=== PATIENT | female | born 1970 | race Caucasian/White ===

== ENCOUNTER 2022-06-07 09:46 | Outpatient (REF) | payer MEDICARE, MEDICAID, SELFPAY ==
[2022-06-08 14:56] LABS: H Pylori Breath Test Negative (Negative)
== END 2022-06-07 09:47 | disposition home or self-care (01) ==
LOC: HO.LNP 09:46
PROVIDERS: Physician Assistant; PCP Internal Medicine; Visit Provider Physician Assistant Surgical
DX: Z01.818 Encounter for other preprocedural examination (principal); E66.01 Morbid (severe) obesity due to excess calories; E03.9 Hypothyroidism, unspecified; F31.9 Bipolar disorder, unspecified; I10 Essential (primary) hypertension; Z90.3 Acquired absence of stomach [part of]
CPT/HCPCS: 83013; 99202; 99211

== ENCOUNTER → 2022-06-28 09:41 | Outpatient (BNVA) | payer MEDICARE, MEDICAID, SELFPAY | PROVIDERS: PCP Internal Medicine; Visit Provider Physician Assistant | DX: E66.01 Morbid (severe) obesity due to excess calories (principal); I10 Essential (primary) hypertension; E03.9 Hypothyroidism, unspecified; Z90.3 Acquired absence of stomach [part of]; Z68.43 Body mass index [BMI] 50.0-59.9, adult | CPT/HCPCS: 99212 ==

== ENCOUNTER 2022-07-03 08:37 | Outpatient (REF) | payer MEDICARE, MEDICAID, SELFPAY ==
--- NOTE | ~2022-07-03 | XR_ITS ---
EXAMINATION: XR CHEST CLINICAL INFORMATION: Obesity COMPARISON: None TECHNIQUE: 2 views of the chest were obtained. FINDINGS: No significant abnormality is noted involving the heart, lungs, mediastinum, bony thorax or soft tissues. XR/XR chest 2V IMPRESSION: Unremarkable examination.
--- NOTE | 2022-07-03 08:48 | ECG_ITS ---
Test Reason : e66.01 Blood Pressure : / mmHG Vent. Rate : 054 BPM Atrial Rate : 054 BPM P-R Int : 126 ms QRS Dur : 098 ms QT Int : 424 ms P-R-T Axes : 022 073 041 degrees QTc Int : 402 ms Sinus bradycardia Otherwise normal ECG No previous ECGs available Referred By: Prachi Brooks Electronically Signed By:AUSTIN BEGUM
[2022-07-03 08:53] LABS: MANUAL DIFF FLAG NO
[2022-07-03 09:26] LABS: Basophils Percent Auto 0.4 % (0-2); Eosinophils Absolute Auto 0.2 X10*3/uL (0.0-0.4); Eosinophils Percent Auto 2.9 % (0-4); Hematocrit 43.8 % (37.0-47.0); Hemoglobin 14.3 g/dl (12.0-16.0); Imm Gran Abs Auto 0.03 X10*3/uL (0.00-0.03); Imm Gran Pct Auto 0.4 % (0.0-0.4); Lymphocytes Absolute Auto 1.6 X10*3/uL (1.2-4.9); Lymphocytes Percent Auto 20.7 % (20-40); Mean Corpuscular HGB Conc 32.6 g/dl (31.0-35.0); Mean Corpuscular Hemoglobin 28.7 pg (27.0-33.0); Mean Platelet Volume 9.5 fL (9.4-12.3); Monocytes Absolute Auto 0.5 X10*3/uL (0.1-1.2); Monocytes Percent Auto 6.3 % (2-11); Neutrophils Absolute Auto 5.5 x10*3/uL (2.0-8.3); Neutrophils Percent Auto 69.3 % (45-73); Platelet Count 345 X10*3/uL (160-400); Red Blood Count 4.98 X10*6/uL (4.20-5.50); White Blood Count 7.9 X10*3/uL (4.8-10.8)
[2022-07-03 10:04] LABS: Estimated Average Glucose 111 mg/dL; Hemoglobin A1c % 5.5 %
[2022-07-03 10:31] LABS: Folate 9.5 ng/mL (> or = 4.0); Vitamin B12 404 pg/mL (200-900)
[2022-07-03 10:32] LABS: Alanine Aminotransferase 19 U/L (0-31); Albumin Level 4.2 g/dL (3.5-5.0); Alkaline Phosphatase 82 U/L (39-117); Anion Gap 14 (12-20); Aspartate Amino Transferase 18 U/L (5-31); Bilirubin Total 0.4 mg/dL (0.0-1.0); Blood Urea Nitrogen 14 mg/dL (9-16); C Reactive Protein 1.45 mg/dL (< or = 0.50); Calcium 9.6 mg/dL (8.4-10.2); Carbon Dioxide 25 mmol/L (22-29); Chloride 103 mmol/L (96-108); Cholesterol 156 mg/dL; Estimated Glomerular Filt Rate > 60; Ferritin 45 ng/mL (10-250); Glucose Random 103 mg/dL (60-115); HDL Cholesterol 47 mg/dL; Insulin 8 uU/mL (2-29); Iron 51 mcg/dL (30-160); LDL Cholesterol Calculated 95 mg/dl; Percent Iron Saturation 15 % (15-50); Potassium 4.7 mmol/L (3.3-5.1); Sodium 137 mmol/L (135-145); TSH reflex Free T4 2.61 uIU/mL (0.32-4.0); Total Iron Binding Capacity 331 mcg/dL (228-428); Total Protein 6.9 g/dL (6.5-8.0); Triglycerides 71 mg/dL; Unsaturated Iron Binding 280 ug/dL; Vitamin D 25-OH Total 21.7 ng/mL (>30)
[2022-07-04 15:24] LABS: Calcium (PTHI) 9.4 mg/dL (8.6-10.4); PTHI 38 pg/mL (16-77)
[2022-07-09 00:08] LABS: Zinc 79 mcg/dL (60-130)
[2022-07-09 09:52] LABS: Vitamin A 33 mcg/dL (38-98)
[2022-07-10 06:22] LABS: Vitamin B1 9 nmol/L (8-30)
== END 2022-07-03 08:38 | disposition home or self-care (01) ==
LOC: HO.LAB 08:37
PROVIDERS: PCP Internal Medicine; Visit Provider Physician Assistant
DX: Z01.818 Encounter for other preprocedural examination (principal); E66.01 Morbid (severe) obesity due to excess calories; Z90.3 Acquired absence of stomach [part of]
CPT/HCPCS: 36415; 71046; 80053; 80061; 82306; 82607; 82728; 82746; 83036; 83525; 83540; 83970; 84425; 84443; 84590; 84630; 85025; 86140; 93005

== ENCOUNTER → 2022-07-19 09:30 | Outpatient (BNVA) | payer MEDICARE, MEDICAID, SELFPAY | PROVIDERS: PCP Internal Medicine; Visit Provider Physician Assistant | DX: E66.01 Morbid (severe) obesity due to excess calories (principal); Z90.3 Acquired absence of stomach [part of] | CPT/HCPCS: Q3014 ==

== ENCOUNTER → 2022-07-24 16:02 | Outpatient (BNVA) | payer MEDICARE, MEDICAID, SELFPAY | PROVIDERS: PCP Internal Medicine; Referring Provider Physician Assistant; Visit Provider Dietitian, Registered | DX: E66.01 Morbid (severe) obesity due to excess calories (principal); Z68.43 Body mass index [BMI] 50.0-59.9, adult; Z98.84 Bariatric surgery status | CPT/HCPCS: 97802 ==

== ENCOUNTER 2022-07-30 09:21 | Outpatient (REF) | payer MEDICARE, MEDICAID, SELFPAY ==
--- NOTE | ~2022-07-30 | FL_ITS ---
EXAMINATION: XR FLUOROSCOPY UPPER GI WITH AIR CLINICAL INFORMATION: Morbid/severe obesity due to excess calories. COMPARISON: None TECHNIQUE: Routine upper GI air-contrast study was performed in upright and lying position. FINDINGS: Following oral administration of thick barium and effervescent granules, there is normal propagation of bolus from the oral cavity through the pharynx, esophagus into stomach without any evidence of obstruction, narrowing or stricture. A prominent cricoesophageal sphincter is noted. On placing patient supine and prone lying, there is previous gastric sleeve surgery. The remaining stomach is distended. There is fast gastric emptying of oral contrast and gas into the duodenum. Mucosal pattern of the stomach, duodenal bulb and sweep is normal. Mild gastroesophageal reflux is noted without hiatal hernia. FLUOROSCOPY TIME: 1.2 minutes DOSE AREA PRODUCT: 36.502 uGy-m2 (microgray-meter squared) FL/FL upper GI w air IMPRESSION: Evidence of previous gastric sleeve surgery with unremarkable-appearing remaining stomach. There is fast gastric emptying of barium. Mild gastroesophageal reflux without hiatal hernia.
--- NOTE | ~2022-07-30 | US_ITS ---
EXAMINATION: US COMPLETE ABDOMEN WITH LIVER ELASTOGRAPHY CLINICAL INFORMATION: Morbid/severe obesity. COMPARISON: None. TECHNIQUE: Real-time imaging of the abdominal viscera. Noninvasive ultrasound liver fibrosis assessment is performed using Morales ElastPQ point quantification shear wave elastography (2D-SWE) with a C5-2 MHz transducer. Multiple elastography samples are obtained. FINDINGS: PANCREAS: The visualized pancreatic head and body are normal in appearance. The remainder of the pancreas is obscured from visualization by the overlying bowel gas. ABDOMINAL AORTA: The proximal, middle, and distal aortic segments are normal in caliber. INFERIOR VENA CAVA: Visualized portions are normal. LIVER: Normal. The liver demonstrates normal size, contour and slight increased echogenicity. No focal lesion or intrahepatic biliary duct dilatation. The right lobe measures 14.6 cm in length. The left lobe measures 10.7 cm in length. Portal flow is hepatopedal. Shear wave liver elastography median stiffness is 1.48 m/s (reference: normal median stiffness is 1.3 m/s or less). IQR/median stiffness to assess sampling precision is 0.08 (reference: good quality data set is IQR/median stiffness of 0.15 or less). GALLBLADDER: There are multiple echogenic impacted stones with a positive (SHLOMO sign). The gallbladder wall measures 0.4 cm. COMMON BILE DUCT: Normal in caliber measuring 0.6 cm in diameter. RIGHT KIDNEY: There is a large junctional parenchymal defect. No hydronephrosis. No renal calculi or focal parenchymal lesions. The kidney measures 12.2 cm in maximum dimension. LEFT KIDNEY: There is a trace amount of free fluid near the upper pole. No hydronephrosis. No renal calculi or focal parenchymal lesions. The kidney measures 11.8 cm in maximum dimension. SPLEEN: Normal. The spleen measures 9.5 cm in maximum dimension. FREE FLUID: None. US/US abdomen comp w elastography IMPRESSION: 1. Mild hepatic steatosis with no focal lesion seen. 2. Cholelithiasis. 3. Trace free fluid adjacent to the upper pole of the left kidney. 4. Liver elastography: Median liver stiffness measures 1.48 m/s corresponding to cACLD (ruled out). REFERENCE: Society of Radiologists in Ultrasound Liver Stiffness Thresholds (2020): LIVER STIFFNESS THRESHOLDS: *Liver Stiffness equal or less than 1.3 m/s: High probability of being normal. *Liver Stiffness less than 1.7 m/s: In the absence of other known clinical signs, rules out compensated advanced chronic liver disease. *Liver Stiffness 1.7-2.1 m/s: Suggestive of compensated advanced chronic liver disease but need further test for confirmation. *Liver Stiffness over 2.1 m/s: Rules in compensated advanced chronic liver disease. *Liver Stiffness over 2.4 m/s: Suggestive of clinically significant portal hypertension. QUALITY OF DATA SET: *IQR/Median value equal or less than 0.15 implies a quality data set. *IQR/Median value over 0.15 implies a poor quality data set. SIGNIFICANT CHANGE FROM PRIOR EXAM: Significant change if liver stiffness measurement is 10% or greater from prior exam. OTHER CONSIDERATIONS: The stage of liver fibrosis may be overestimated in the setting of acute hepatitis, liver inflammation, elevated liver function tests, hepatic vascular congestion, obstructive cholestasis, non-fasting state, and infiltrative diseases such as amyloidosis and lymphoma. In some patients with NAFLD, the liver stiffness thresholds for compensated advanced chronic liver disease may be lower. In causes other than viral hepatitis and NAFLD, liver stiffness thresholds are not well established.
== END 2022-07-30 09:22 | disposition home or self-care (01) ==
LOC: HO.US 09:21
PROVIDERS: Visit Provider Physician Assistant
DX: Z01.818 Encounter for other preprocedural examination (principal); E66.01 Morbid (severe) obesity due to excess calories; K21.9 Gastro-esophageal reflux disease without esophagitis; Z90.3 Acquired absence of stomach [part of]
CPT/HCPCS: 74246; 76705; 76981

== ENCOUNTER → 2022-08-05 10:00 | Outpatient (BNVA) | payer MEDICARE, MEDICAID, SELFPAY | PROVIDERS: PCP Internal Medicine; Visit Provider Physician Assistant | DX: E66.01 Morbid (severe) obesity due to excess calories (principal); Z68.42 Body mass index [BMI] 45.0-49.9, adult; Z90.3 Acquired absence of stomach [part of] | CPT/HCPCS: Q3014 ==

== ENCOUNTER 2022-08-15 06:13 | Day surgery (SDC) | payer MEDICARE, MEDICAID, SELFPAY ==
--- NOTE | 2022-08-09 18:50 | MHC.SHP ---
Pre-Procedural Eval Section A Date of Service: 08/09/22 The patient is an INPATIENT: No The History & Physical has been completed within 30 days and I have reviewed it.: Yes Section B Chief Complaint: Bariatric surgery status Relevant Family History (Specify if Yes): No Relevant Social History: None Present Medications: None Medical History: No relevant PMH History of Previous Operations: Relevant previous surgery/procedure and date(s) (lap sleeve gastrectomy) Allergies: Allergies Allergy/AdvReac Type Severity Reaction Status Date / Time No Known Allergies Allergy Verified 06/28/22 09:49 Review of Systems Sugical H&P ROS: Negative: Constitution, Cardiovascular, Respiratory, Neurological, Psychiatric, Hem-Onc, Allergic/Immunologic, Gastrointestinal, Genitourinary, Musculoskeletal, Integumentary, Endocrine and Eyes/Ears/Nose/Throat Exam Surgical H&P Exam: Normal: HEENT, Normal: Heart, Normal: Lungs, Normal: Extremities, Normal: Abdomen, Normal: Skin and Normal: Neurological Plan Diagnosis/Plan: Unchanged (EGD to assess for esophagitis and assess sleeve's anatomy. Risks for perforation and bleeding were discussed with patient. She is in agreement with the plan) I have reviewed the history and physical and performed a pertinent physical examination on my patient. No changes have occurred unless specified. Time Spent With Patient Time: Total time managing care of this patient today ____ minutes.
--- NOTE | 2022-08-14 09:13 | HO.ANESPROP2 ---
Documented by User: Norma Smith NP 08/14/22 09:15 HPI - Anesthesia Eval Consult details Narrative: 52yo F for Upper Endoscopy PMFSH Active Problems Active Problems: All Active Problems (Updated 06/07/22 @ 09:38 by Prachi Brooks PA-C) Pre-op evaluation (Acute) HTN (hypertension) with goal to be determined (Acute) Hypothyroid (Acute) Bipolar 1 disorder (Acute) History of sleeve gastrectomy (Acute) Morbid obesity (Acute) Past Medical History Medical History (Updated 08/14/22 @ 09:14 by Norma Smith NP) Bipolar 1 disorder HTN (hypertension) with goal to be determined Hypothyroid Family History Family History Mother Heart attack Father Heart attack Brother Heart attack Diabetes Brother Hypertension Brother Hypertension Sister Hypertension Sister No problems noted. Daughter No problems noted. Daughter No problems noted. Son No problems noted. Surgical History Surgical History History of sleeve gastrectomy Hx of colonoscopy Social History Social History Alcohol intake: former Year quit: 2019 Patient Tobacco Use Status: Current everyday Tobacco user Tobacco use type: Cigarette Cigarette Packs Per Day: 1 Cigarettes Per Day: 20.0 Second Hand Smoke Exposure: No Meds Allergies Allergy/AdvReac Type Severity Reaction Status Date / Time No Known Allergies Allergy Verified 06/28/22 09:49 Home Medications Medication Instructions Recorded Confirmed Last Taken Type escitalopram oxalate 10 mg tablet 10 mg PO QAM 05/20/22 08/15/22 Unknown History lamotrigine 25 mg tablet 25 mg PO BEDTIME 05/20/22 08/15/22 Unknown History quetiapine 50 mg tablet 50 mg PO BEDTIME 05/20/22 08/15/22 Unknown History levothyroxine 25 mcg capsule 25 mcg PO DAILY 06/28/22 08/15/22 Unknown History lisinopril 20 mg tablet 20 mg PO DAILY 06/28/22 08/15/22 Unknown History Exam Exam Date and Time: August 14, 202213 Pertinent Lab Results Pertinent Lab Results: Laboratory Tests 07/03/22 07/03/22 08:52 08:52 WBC 7.9 Hgb 14.3 Hct 43.8 Plt Count 345 Sodium 137 Potassium 4.7 Chloride 103 Carbon Dioxide 25 BUN 14 Creatinine 0.81 Narrative Narrative: EKG 06/2022 Vent. Rate : 054 BPM ? ? Atrial Rate : 054 BPM ?? P-R Int : 126 ms? QRS Dur : 098 ms ? ? QT Int : 424 ms ? ? ? P-R-T Axes : 022 073 041 degrees ?? QTc Int : 402 ms ? Sinus bradycardia Otherwise normal ECG No previous ECGs available Assessment and Plan Assessment Anesthesia Assessment: Chart Reviewed Documented by User: Diogo Leiva MD 08/15/22 09:56 [facility] Past Medical History Medical History (Updated 08/14/22 @ 09:14 by Norma Smith NP) Bipolar 1 disorder HTN (hypertension) with goal to be determined Hypothyroid Functional capacity: independent ambulation Family History Family History Mother Heart attack Father Heart attack Brother Heart attack Diabetes Brother Hypertension Brother Hypertension Sister Hypertension Sister No problems noted. Daughter No problems noted. Daughter No problems noted. Son No problems noted. Family history of problems with anesthesia: No Surgical History Surgical History History of sleeve gastrectomy Hx of colonoscopy History of Problems with Anesthesia: No Social History Social History Alcohol intake: former Year quit: 2019 Patient Tobacco Use Status: Current everyday Tobacco user Tobacco use type: Cigarette Cigarette Packs Per Day: 1 Cigarettes Per Day: 20.0 Second Hand Smoke Exposure: No Meds Allergies Allergy/AdvReac Type Severity Reaction Status Date / Time No Known Allergies Allergy Verified 06/28/22 09:49 Home Medications Medication Instructions Recorded Confirmed Last Taken Type escitalopram oxalate 10 mg tablet 10 mg PO QAM 05/20/22 08/15/22 Unknown History lamotrigine 25 mg tablet 25 mg PO BEDTIME 05/20/22 08/15/22 Unknown History quetiapine 50 mg tablet 50 mg PO BEDTIME 05/20/22 08/15/22 Unknown History levothyroxine 25 mcg capsule 25 mcg PO DAILY 06/28/22 08/15/22 Unknown History lisinopril 20 mg tablet 20 mg PO DAILY 06/28/22 08/15/22 Unknown History Exam Airway Mallampati Class: III TM Dist: >3cm Neck ROM: Full Loose/Missing/Broken Teeth: Yes Heart: S1,S2 Lungs: distant breath sounds Assessment and Plan Assessment Anesthesia Assessment: Anesthesia Plan Discussed Final Anesthetic Review Family History of Problems with Anesthesia: No History of Problems with Anesthesia: No NPO: Yes ASA Class: III Final Preanesthetic Review: Meds/Allgs Chart Reviewed, Consent Obtained/Reviewed and Anes Risks/Benef Reviewed Patient Risk: High Procedure Risk: Intermediate Anesthetic Plan Anesthetic Plan: MAC: Disposition: Standard PACU
[2022-08-14 11:19] LABS: COVID-19 Test Negative (Negative); IDNOW Serial# BCCEAD1C
[2022-08-15 06:25] VITALS: BMI 48.8
[2022-08-15 06:42] VITALS: BP 104/60; PULSE 68; RESP 16; TEMP 36.6; O2SAT 94
[2022-08-15] MEDS: Lactated Ringers 1,000 ML 100 ML IVCONT (06:58)
[2022-08-15 08:18] VITALS: BP 91/50; PULSE 67; RESP 22; TEMP 36.1; O2SAT 98
--- NOTE | 2022-08-15 08:27 | P.BOP_ITS ---
Brief Operative Note Date of Service: 08/15/22 Pre-op diagnosis: GERD, s/p sleeve gastrectomy Procedure: PROCEDURE DATE: 08/15/2022 PREOPERATIVE DIAGNOSIS: GERD, s/p sleeve gastrectomy POSTOPERATIVE DIAGNOSIS: ?Same as above. 1) esophagitis grade I, 2) distal gastritis PROCEDURE: Sblyealv-pjgjdr-golsylemnlyz with biopsies Surgeon: ?Jin Moseley M.D.. Ph.D. Cementer Machine Applicator: None ? Anesthesia: IV sedation Estimated blood loss: ?Minimal FINDINGS AND PROCEDURE: ? OPERATIVE INDICATIONS: ?The patient is a 52 year old female known to me who underwent a laparoscopic sleeve gastrectomy at [facility]. The patient had inadequate weight loss so far.? The patient has recently been complaining of GERD. Based on this information I recommended an upper endoscopy to evaluate the patient's symptoms. Risks and complications of the surgery were discussed with the patient in advance particularly the possibility of perforation or bleeding that may require surgical intervention. The patient understood the risks and was in agreement with the plan. ? PROCEDURE: After informed consent was obtained by the patient, the patient was ?transferred to the Operating Room and was placed in the supine position.? After successful induction of IV sedation, a mouth block was inserted and the patient was placed in the left lateral decubitus position. An upper endoscopy was performed next, the oropharynx and esophagus appeared within the normal limits. There was no hiatal hernia. The z-line was irregular in 25% circumference of the GEJ. Two biopsies were obtained from the distal esohagus 2- 3 cm proximal to the GE junction and two additional biopsies from the GE junction. The sleeve was entered. There is some redundancy proximally near the EGJ suggestive of inadequate fundal resection. The caliber of the remaining sleeve is even but also somewhat dilated. There was mild gastritis at distal antrum. There was no stricture or ulcer. Biopsies were obtained from the proximal sleeve as well as the distal antrum. No significant bleeding was noted from any of the biopsy sites. The scope was then advanced into the duodenum which appeared to be normal as well. At that point the duodenum ?and the sleeve were decompressed and the scope was withdrawn from the patient's mouth. The patient extubated and was transferred in stable condition to the Recovery Room for further care. I was present and performed all steps of the procedure. There were no residents to assist with this case. Jin Moseley M.D., Ph.D. Surgeon: Dominick Moseley MD Anesthesia: MAC Was an Cementer Machine Applicator used for this Procedure?: No Estimated blood loss (mL): 0 IV fluids (mL): 400 Urine output (mL): 0 (No Batres to record output) Pathology: other (1) antrum x1, 2) proximal sleeve x1, 3) EGJx2, 4) distal esophagus x2) Condition: stable Disposition: PACU
[2022-08-15 08:33] VITALS: BP 108/60; PULSE 72; RESP 16; TEMP 36.1; O2SAT 94
== END 2022-08-15 09:14 | disposition home or self-care (01) ==
PROVIDERS: Physician Assistant Surgical; PCP Internal Medicine; Visit Provider Surgery
PROC: 0DJ08ZZ Inspection of Upper Intestinal Tract, Via Natural or Artificial Opening Endoscopic (ICD-10-PCS; CPT 43235; principal; 2022-08-15 07:30)
DX: K21.00 Gastro-esophageal reflux disease with esophagitis, without bleeding (principal); K29.60 Other gastritis without bleeding; E66.01 Morbid (severe) obesity due to excess calories; Z68.42 Body mass index [BMI] 45.0-49.9, adult; Z98.84 Bariatric surgery status; Z90.3 Acquired absence of stomach [part of]; Z20.822 Contact with and (suspected) exposure to COVID-19; F17.210 Nicotine dependence, cigarettes, uncomplicated
CPT/HCPCS: 43239; 87635; 88305; 88342; 90791; J2250; J3010

== ENCOUNTER → 2022-08-28 15:00 | Outpatient (BNVA) | payer MEDICARE, MEDICAID, SELFPAY | PROVIDERS: PCP Internal Medicine; Visit Provider Physician Assistant | DX: E66.01 Morbid (severe) obesity due to excess calories (principal); F31.9 Bipolar disorder, unspecified; F10.21 Alcohol dependence, in remission; Z90.3 Acquired absence of stomach [part of]; Z68.42 Body mass index [BMI] 45.0-49.9, adult | CPT/HCPCS: Q3014 ==

== ENCOUNTER → 2022-09-03 08:05 | Outpatient (BNVA) | payer MEDICARE, MEDICAID, SELFPAY | PROVIDERS: PCP Internal Medicine; Visit Provider Physician Assistant | DX: Z13.89 Encounter for screening for other disorder (principal) ==

== ENCOUNTER → 2022-09-25 08:10 | Outpatient (BNVA) | payer MEDICARE, MEDICAID, SELFPAY | PROVIDERS: PCP Internal Medicine; Visit Provider Surgery | DX: E66.01 Morbid (severe) obesity due to excess calories (principal); Z68.41 Body mass index [BMI] 40.0-44.9, adult; K21.9 Gastro-esophageal reflux disease without esophagitis; I10 Essential (primary) hypertension; E03.9 Hypothyroidism, unspecified; F41.9 Anxiety disorder, unspecified; F32.A Depression, unspecified; Z98.84 Bariatric surgery status | CPT/HCPCS: Q3014 ==

== ENCOUNTER 2022-09-26 06:37 | Outpatient (REF) | payer MEDICARE, MEDICAID, SELFPAY ==
[2022-09-26 06:59] LABS: MANUAL DIFF FLAG NO
[2022-09-26 07:38] LABS: Basophils Percent Auto 0.4 % (0-2); Eosinophils Absolute Auto 0.3 X10*3/uL (0.0-0.4); Hematocrit 45.1 % (37.0-47.0); Imm Gran Abs Auto 0.02 X10*3/uL (0.00-0.03); Imm Gran Pct Auto 0.3 % (0.0-0.4); Lymphocytes Absolute Auto 1.4 X10*3/uL (1.2-4.9); Mean Corpuscular HGB Conc 33.3 g/dl (31.0-35.0); Mean Corpuscular Hemoglobin 28.9 pg (27.0-33.0); Mean Corpuscular Volume 86.9 fL (80.0-98.0); Mean Platelet Volume 9.7 fL (9.4-12.3); Monocytes Absolute Auto 0.6 X10*3/uL (0.1-1.2); Monocytes Percent Auto 7.8 % (2-11); Neutrophils Absolute Auto 4.9 x10*3/uL (2.0-8.3); Neutrophils Percent Auto 67.5 % (45-73); Platelet Count 299 X10*3/uL (160-400); Red Blood Count 5.19 X10*6/uL (4.20-5.50); White Blood Count 7.2 X10*3/uL (4.8-10.8)
[2022-09-26 07:52] LABS: Prothrombin Time 11.9 SEC (10.0-13.1)
[2022-09-26 07:55] LABS: Partial Thromboplastin Time 28.5 SEC (26.0-36.4)
[2022-09-26 08:05] LABS: Anion Gap 13 (12-20)
[2022-09-26 08:08] LABS: Alanine Aminotransferase 16 U/L (0-31); Albumin Level 3.8 g/dL (3.5-5.0); Alkaline Phosphatase 74 U/L (39-117); Aspartate Amino Transferase 18 U/L (5-31); Bilirubin Total 0.4 mg/dL (0.0-1.0); Blood Urea Nitrogen 10 mg/dL (9-16); C Reactive Protein 3.09 mg/dL (< or = 0.50); Calcium 8.7 mg/dL (8.4-10.2); Carbon Dioxide 26 mmol/L (22-29); Chloride 106 mmol/L (96-108); Cholesterol 104 mg/dL; Estimated Glomerular Filt Rate > 60; Glucose Random 108 mg/dL (60-115); HDL Cholesterol 30 mg/dL; LDL Cholesterol Calculated 62 mg/dl; Sodium 141 mmol/L (135-145); Total Protein 6.3 g/dL (6.5-8.0); Triglycerides 60 mg/dL
[2022-09-26 09:38] LABS: Estimated Average Glucose 114 mg/dL; Hemoglobin A1c % 5.6 %
[2022-09-26 12:11] LABS: Free T4 (Free Thyroxine) 1.03 ng/dL (0.71-1.85); Insulin 10 uU/mL (2-29)
== END 2022-09-26 06:38 | disposition home or self-care (01) ==
LOC: HO.LAB 06:37
PROVIDERS: PCP Internal Medicine; Visit Provider Surgery
DX: E66.01 Morbid (severe) obesity due to excess calories (principal)
CPT/HCPCS: 36415; 80053; 80061; 83036; 83525; 84439; 84443; 85025; 85610; 85730; 86140; 86850; 86900; 86901

== ENCOUNTER → 2022-09-30 08:02 | Outpatient (BNVA) | payer MEDICARE, MEDICAID, SELFPAY | PROVIDERS: PCP Internal Medicine; Visit Provider Surgery ==

== ENCOUNTER 2022-10-03 15:07 | Inpatient (IN) | payer MEDICARE, MEDICAID, SELFPAY ==
[2022-09-25 14:03] VITALS: BMI 44.9
--- NOTE | 2022-09-27 18:40 | MHC.SHP ---
Pre-Procedural Eval Section A Date of Service: 09/27/22 The patient is an INPATIENT: Yes The History & Physical has been completed within 30 days and I have reviewed it.: Yes Section B Chief Complaint: obesity Relevant Family History (Specify if Yes): No Relevant Social History: None Present Medications: None Medical History: No relevant PMH History of Previous Operations: Relevant previous surgery/procedure and date(s) (laparoscopic sleeve gastrectomy) Allergies: Allergies Allergy/AdvReac Type Severity Reaction Status Date / Time No Known Allergies Allergy Verified 09/25/22 13:31 Review of Systems Sugical H&P ROS: Negative: Constitution, Cardiovascular, Respiratory, Neurological, Psychiatric, Hem-Onc, Allergic/Immunologic, Gastrointestinal, Genitourinary, Musculoskeletal, Integumentary, Endocrine and Eyes/Ears/Nose/Throat Exam Surgical H&P Exam: Normal: HEENT, Normal: Heart, Normal: Lungs, Normal: Extremities, Normal: Abdomen, Normal: Skin and Normal: Neurological Plan Diagnosis/Plan: Unchanged I have reviewed the history and physical and performed a pertinent physical examination on my patient. No changes have occurred unless specified. Time Spent With Patient Time: Total time managing care of this patient today ____ minutes.
--- NOTE | 2022-10-02 09:41 | P.CONAN_ITS ---
Documented by User: Norma Smith NP 10/02/22 09:43 HPI - Anesthesia Eval Consult details Narrative: 52yo F for Revision Sleeve Gastrectomy,Gastrectomy Sleeve,EGD,poss diaphragmatic hernia,poss ventral hernia,poss open, s/p EGD 07/2022 with [facility]A PMFSH Active Problems Active Problems: All Active Problems (Updated 09/25/22 @ 10:46 by Dominick Moseley MD) Morbid obesity (Acute) Pre-op evaluation (Acute) Alcohol dependence in sustained full remission (Acute) Anxiety (Acute) Depression (Acute) Hypothyroid (Acute) Hypertension (Acute) GERD (gastroesophageal reflux disease) (Acute) Bipolar 1 disorder (Acute) History of sleeve gastrectomy (Acute) Past Medical History Medical History (Updated 10/03/22 @ 16:19 by Dominick Moseley MD) Anxiety Bipolar 1 disorder Depression GERD (gastroesophageal reflux disease) HTN (hypertension) with goal to be determined Hypertension Hypothyroid Family History Family History Mother Heart attack Father Heart attack Brother Heart attack Diabetes Brother Hypertension Brother Hypertension Sister Hypertension Sister No problems noted. Daughter No problems noted. Daughter No problems noted. Son No problems noted. Family history of problems with anesthesia: No Surgical History Surgical History (Updated 10/03/22 @ 14:50 by MAUREEN Jarquin) History of esophagogastroduodenoscopy (EGD) History of sleeve gastrectomy Hx of colonoscopy History of Problems with Anesthesia: No Social History Social History Household Members: None Housing: Apartment Are you a primary spiritual care coordinator to a significant other at home: No Do you presently have visiting nurse or other home services: No Alcohol intake: former Year quit: 2019 Patient Tobacco Use Status: Former Tobacco user Quit Date: 1 month ago Tobacco use type: Cigarette Cigarette Packs Per Day: 1 Cigarettes Per Day: 20.0 Years Smoked: 35+ Smoked in Last 30 Days: No Second Hand Smoke Exposure: No Use of substances other than those prescribed or required for medical reasons: No Have you been hit, kicked, punched, or otherwise hurt by someone within the past year? If so, by whom?: No Do you feel safe in your current relationship?: Yes Is there a partner from a previous relationship who is making you feel unsafe now?: No Are you made to feel afraid or neglected: No Are you DNR?: No Advance Directives: No Advance Directives Information Provided: Yes (Info mailed with Pre-op instructions) Do you have thoughts of harming others: None Do you have a plan to hurt others: No Plan Recently lost weight without trying: No How much weight loss: 24-33 pounds Eating poorly because of decreased appetite: No Nutrition screen score: 3 Nutrition Risks: No Nutritional Risk Patient : No : No Poor oral hygiene: No Meds Allergies Allergy/AdvReac Type Severity Reaction Status Date / Time No Known Allergies Allergy Verified 09/25/22 13:31 Home Medications Medication Instructions Recorded Confirmed Last Taken Type levothyroxine 25 mcg capsule 25 mcg PO DAILY 06/28/22 09/25/22 Unknown History escitalopram oxalate 20 mg tablet 1 tab PO DAILY 10/03/22 10/03/22 Unknown His tory lisinopril 10 mg tablet 1 tab PO DAILY 10/03/22 10/03/22 Unknown History quetiapine 100 mg tablet 1 tab PO BEDTIME PRN Insomnia 10/03/22 10/03/22 Unknown History Exam Exam Date and Time: October 02, 2022 0941 Height,Weight and Vital Signs: Height 5 ft 2 in Weight 111.584 kg Pertinent Lab Results Pertinent Lab Results: Laboratory Tests 09/26/22 09/26/22 06:48 06:48 WBC 7.2 Hgb 15.0 Hct 45.1 Plt Count 299 Sodium 141 Potassium 4.0 Chloride 106 Carbon Dioxide 26 BUN 10 Creatinine 0.72 Narrative Narrative: EKG 06/2022 Vent. Rate : 054 BPM ? ? Atrial Rate : 054 BPM ?? P-R Int : 126 ms? QRS Dur : 098 ms ? ? QT Int : 424 ms ? ? ? P-R-T Axes : 022 073 041 degrees ?? QTc Int : 402 ms ? Sinus bradycardia Otherwise normal ECG No previous ECGs available Assessment and Plan Assessment Anesthesia Assessment: Chart Reviewed Final Anesthetic Review Family History of Problems with Anesthesia: No History of Problems with Anesthesia: No Documented by User: Diogo Leiva MD 10/03/22 17:52 HPI - Anesthesia Eval Consult details Narrative: 52yo F for Revision Sleeve Gastrectomy,Gastrectomy Sleeve,EGD,poss diaphragmatic hernia,poss ventral hernia,poss open, s/p EGD 07/2022 with [facility] Past Medical History Medical History (Updated 10/03/22 @ 16:19 by Dominick Moseley MD) Anxiety Bipolar 1 disorder Depression GERD (gastroesophageal reflux disease) HTN (hypertension) with goal to be determined Hypertension Hypothyroid Functional capacity: independent ambulation Family History Family History Mother Heart attack Father Heart attack Brother Heart attack Diabetes Brother Hypertension Brother Hypertension Sister Hypertension Sister No problems noted. Daughter No problems noted. Daughter No problems noted. Son No problems noted. Surgical History Surgical History (Updated 10/03/22 @ 14:50 by MAUREEN Jarquin) History of esophagogastroduodenoscopy (EGD) History of sleeve gastrectomy Hx of colonoscopy Social History Social History Household Members: None Housing: Apartment Are you a primary spiritual care coordinator to a significant other at home: No Do you presently have visiting nurse or other home services: No Alcohol intake: former Year quit: 2019 Patient Tobacco Use Status: Former Tobacco user Quit Date: 1 month ago Tobacco use type: Cigarette Cigarette Packs Per Day: 1 Cigarettes Per Day: 20.0 Years Smoked: 35+ Smoked in Last 30 Days: No Second Hand Smoke Exposure: No Use of substances other than those prescribed or required for medical reasons: No Have you been hit, kicked, punched, or otherwise hurt by someone within the past year? If so, by whom?: No Do you feel safe in your current relationship?: Yes Is there a partner from a previous relationship who is making you feel unsafe now?: No Are you made to feel afraid or neglected: No Are you DNR?: No Advance Directives: No Advance Directives Information Provided: Yes (Info mailed with Pre-op instructions) Do you have thoughts of harming others: None Do you have a plan to hurt others: No Plan Recently lost weight without trying: No How much weight loss: 24-33 pounds Eating poorly because of decreased appetite: No Nutrition screen score: 3 Nutrition Risks: No Nutritional Risk Patient : No : No Poor oral hygiene: No Meds Allergies Allergy/AdvReac Type Severity Reaction Status Date / Time No Known Allergies Allergy Verified 09/25/22 13:31 Home Medications Medication Instructions Recorded Confirmed Last Taken Type levothyroxine 25 mcg capsule 25 mcg PO DAILY 06/28/22 09/25/22 Unknown History escitalopram oxalate 20 mg tablet 1 tab PO DAILY 10/03/22 10/03/22 Unknown History lisinopril 10 mg tablet 1 tab PO DAILY 10/03/22 10/03/22 Unknown History quetiapine 100 mg tablet 1 tab PO BEDTIME PRN Insomnia 10/03/22 10/03/22 Unknown History Exam Airway Mallampati Class: III TM Dist: >3cm Neck ROM: Full Loose/Missing/Broken Teeth: Yes Heart: S1,S2 Lungs: b/l breath sounds Assessment and Plan Assessment Anesthesia Assessment: Anesthesia Plan Discussed Final Anesthetic Review NPO: Yes ASA Class: III Final Preanesthetic Review: Meds/Allgs Chart Reviewed, Consent Obtained/Reviewed and Anes Risks/Benef Reviewed Patient Risk: Intermediate Procedure Risk: Intermediate Anesthetic Plan Anesthetic Plan: GA and Agree w/ Assess. and Plan Disposition: Standard PACU
[2022-10-02 12:50] LABS: COVID-19 Test Negative (Negative); IDNOW Serial# 08D9AD1C
[2022-10-03] VITALS (10 sets, daily range): BP systolic 102–131; BP diastolic 54–74; PULSE 62–97; RESP 16–18; TEMP 36.3–36.7; O2SAT 93–97
[2022-10-03] MEDS: Lactated Ringers 1,000 ML 100 ML IVCONT ×3 (08:50→16:20)
--- NOTE | 2022-10-03 11:01 | PM.OP ---
Brief Operative Note Date of Service: 10/03/22 Pre-op diagnosis: Morbid obesity with comorbidities (see below) Post-op diagnosis: same (& extensive abdominal adhesions) Procedure: INITIAL PATIENT BMI ON PRESENTATION AT OUR OFFICE: 52.5 kg/m2 LAST BMI BEFORE SURGERY: 41.3 kg/m2 COMORBIDITIES: Hypothyroidism, hypertension, depression, anxiety, GERD, liver steatosis, cholelithiasis ?The patient presented to the Weight Management Program with significant obesity that was negatively impacting the patient's comorbidities as listed above.? The program is a phased program with a special focus on preoperative medical weight management to promote substantial weight loss and prepare the patients for the second phase of the program: bariatric surgery. The patient participated in an intensive weekly lifestyle ?intervention and exercise program during which the patient ?has lost between the initial office visit and the last preoperative visit 41.2lbs, or 14.35% of initial actual body weight. It was deemed appropriate for the patient to now have bariatric surgery. In light of the current Covid-19 pandemic and the well documented strong association of obesity and increased risk of worse outcomes if infected with Covid-19 (REFERENCES:https://pubmed.ncbi.nlm.nih.gov/14629762/,?https://pubmed.ncbi.nlm.nih.gov/92547400/), any delay in undergoing bariatric surgery may lead to the patient's worsening health condition and increased?risk of more severe Covid-19 disease if infected. In addition a recent?study from [facility] published in [facility] on 07/16/2021 ([email or web address]) found that, among patients with obesity, substantial weight loss achieved with surgery was associated with improved outcomes of COVID-19 infection. The findings suggest that obesity can be a modifiable risk factor for the severity of COVID-19 infection. In addition, the patient met the BMI-criteria for bariatric surgery based on the BMI on initial presentation. The patient should not be penalized for achieving such weight loss because ?it is not sustainable long-term without surgical intervention and it was achieved in preparation for bariatric surgery ?under my direction and based on my published research ([email or web address] and?[email or web address].[email or web address]/pdf) ?that a 10% preoperative weight loss improves long-term weight loss after surgery and reduces perioperative complications.? Insurance carriers such as [facility] have endorsed my recommendations ?and have included in their policies criteria to include a 10% preoperative weight loss requirement. PROCEDURE: Esophago-gastroscopy, extensive laparoscopic lysis of adhesions, laparoscopic sleeve gastrectomy and laparoscopic gastropexy INDICATIONS: This is a 52 year-old female who was electively scheduled for laparoscopic, possibly open sleeve gastrectomy revision. The patient has a previous sleeve gastrectomy at [facility] with Dr. Michel. Preoperative work-up including an UGI and EGD is suggestive of redundancy at the proximal pouch of retained gastric fundus.. The objective of this operation is to redo the sleeve. The risks and complications of the procedure were discussed with the patient in advance, particularly the possibility of ; pulmonary embolism; staple line leak; bleeding; GERD; cardiac, pulmonary, or renal complications; as well as long-term problems such as insufficient weight loss, vitamin deficiency, strictures, or ulcers. The patient understood all the risks, and was in agreement to proceed with surgery. DESCRIPTION OF PROCEDURE: After informed consent was obtained from the patient, the patient was given preoperative antibiotics, and was transferred to the operating room. After successful induction of general anesthesia, pneumatic compression devices were placed on both lower extremities. An upper endoscopy was performed next. The oropharynx and esophagus appeared to be within normal limits. There was no diaphragmatic hernia present consistent with the findings of the preoperative upper GI. The stomach was entered. Then after all fluid and air were suctioned and the stomach was fully decompressed, the scope was withdrawn and secured in the mid esophagus. The patient was then prepped and draped in the usual sterile manner, and abdominal access was established at the right upper quadrant with the Caden technique. A 12 mm blunt port was inserted, and the abdomen was insufflated with CO2 to a pressure of 15 mmHg. Under direct visualization, additional ports were placed, specifically two 5 mm Versi-step ports to the left upper quadrant, and a 5 mm Versi-Step port to the right upper quadrant. 1% lidocaine plain was used to infiltrate all port sites as well as all fascia defects. There were adhesions in the abdomen from previous sleeve gastrectomy involving the left lobe of the liver, the sleeve's staple line and the anterior abdominal wall. Those were lysed completely with the ultrasonic device. Following that, the patient was placed in a steep reverse Trendelenburg position. An additional 5 mm port was placed to the right flank for the Mediflex retractor that was used to retract the left lobe of the liver. The gastro-esophageal fat pad was opened with the ultrasonic device (Thunderbeat, Olympus) and the anterior esophagus and hiatus were exposed. The angle of His was opened with the ultrasonic device the fundus of the stomach from any diaphragmatic and splenic attachments. I then opened the gastrocolic ligament between the transverse colon and the greater curvature of the stomach with the ultrasonic device to enter the lesser sac. This was very difficult as there were dense adhesions from previous sleeve gastrectomy. The dissection continued all the way to the angle of His until the left belen was completely dissected at its entirety. The previous surgeon did not dissect adequately posterior leaving short gastric vessels? which resulted in a much larger proximal stomach which was confirmed bt preoperative UGI and EGD. These posterior short gastric vessels were ligated as well as other posterior attachments that were not divided originally. As a result of the inadequate resection at the original operation, the stomach was attached to the spleen. This required careful and tedious dissection but I was able to mobilize the stomach from the sleeve without any injury. This allowed us to mobilize the stomach completely and appreciate the amount of stomach that was inappropriately left unresected at the original operation.? Adhesiolysis took approximately 80 min to complete with a total operative time of 2 hours. The stomach was then divided transversely with one Endo LEAH-45 purple load, one LEAH-45 orange load and one LEAH-60 orange load using the AEON stapler and loads. Every effort was made that the gastric sleeve had a tubular shape and an even caliber throughout. An endoscopy was performed before each fire to ensure that I did not narrow the gastro-esophageal junction. Once the sleeve resection was completed, the staple line of the gastric sleeve was reinforced with Hemoclips. The resected stomach was retrieved without difficulty from the Caden port. A gastropexy was then performed in order to prevent postoperative GERD and partial gastric volvulus. Several interrupted 2.0 Surgidac sutures were placed between the sleeve's staple line and the previously divided greater omentum and gastro-colic ligament using the Endo-Stitch device. ?An upper endoscopy was performed. There was no narrowing at the GE junction. The scope was easily advanced all the way to the pylorus which was clearly visualized. There was no narrowing anywhere and the sleeve's caliber was even throughout. The sleeve's staple line was inspected and there was no evidence of ischemia, bleeding or dehiscence. At that point the gastroscope was withdrawn from the patient?s mouth while we were decompressing the bowel and the stomach from any remaining air. I looked into the lesser sac to see how the sleeve was situating and it was situating well. There was no bleeding from the staple line, spleen, or short gastric vessels. The Mediflex retractor was removed, and the undersurface of the liver was inspected and there was no bleeding. The patient was placed in supine position. I closed the fascial defect of the 12 mm port site with a figure of eight #1 Polysorb suture. Then 30cc Ropivacaine plain with 10 mg of Dexamethasone were used to infiltrate the fascial closure as well as all skin incisions. A total of 6ml of Zynrelef was used at the Caden port site. At this point, the abdomen was deflated, all ports were removed under direct vision, and no bleeding was noted from any of the port sites. The skin incisions were irrigated with saline and were closed with 4-0 absorbable monofilament sutures. Steri-Strips and OpSites were used to cover all incisions. The patient was extubated and was transferred in stable condition to the recovery room for further care. I was present and performed all arshad parts of the procedure. Mr. Lizama was the laboratory assistant. There were no residents to assist with this case. Jin Moseley MD, PhD, FACS Surgeon: Dominick Moseley MD Anesthesia: GETA, local and other (TAP block and 6ml Zynrelef) Was an Dramatic Art Teacher used for this Procedure?: No Dramatic Art Teacher: Zaid Lizama Estimated blood loss (mL): 10 IV fluids (mL): 3,000 Urine output (mL): 0 (No Batres to gravity) Condition: stable Disposition: PACU
--- NOTE | 2022-10-03 11:05 | PM.PNGS ---
Subjective Subjective Date of Service: 10/04/22 Interval history: Feels well. Mild incisional pain. She is tolerating phase 1 bariatric diet Physical Exam Vital Signs: Vital Signs: Last Vital Signs Temp 98.1 F 10/03/22 08:46 Pulse 75 10/03/22 08:46 Resp 16 10/03/22 08:46 BP 102/59 L 10/03/22 08:46 Pulse Ox 94 10/03/22 08:46 O2 Del Method 10/03/22 08:46 BMI result Body Mass Index 44.9 GI: Inspection: Yes normal to inspection, Yes incision (clean, dry and intact) and Yes obesity Extrem: Right lower extremity: normal to inspection (no calf tenderness) Left lower extremity: normal to inspection (no calf tenderness) Objective Data Active Medications Lactated Ringer's (Lr) 1,000 mls @ 100 mls/hr IVCONT .Q10H JF Last Admin: 10/03/22 08:50 Dose: 100 mls/hr Documented By: JOSE ROBERTO Labs 10/03/22 15:17 10/03/22 15:16 Labs: Laboratory Results - last 24 hr 09/26/22 10/02/22 06:48 12:05 COVID-19 ([facility]) Negative COVID-19 Clin Com See Note Blood Type O Positive Antibody Screen NEGATIVE Procedures Date of Service Date of Service: 10/04/22 Progress Note: A&P Assessment and plan (1) Morbid obesity: Status: Acute Assessment and Plan: s/p laparoscopic sleeve gastrectomy, lysis of adhesions and gastropexy Doing well Will check am labs and if OK the patient will be discharged home (2) History of sleeve gastrectomy: Status: Inactive (3) GERD (gastroesophageal reflux disease): Status: Acute (4) Bipolar 1 disorder: Status: Acute (5) Hypertension: Status: Acute (6) Hypothyroid: Status: Acute (7) Depression: Status: Acute (8) Anxiety: Status: Acute (9) Steatosis, liver: Status: Acute (10) Cholelithiasis: Status: Acute (11) S/P laparoscopic sleeve gastrectomy: Status: Acute (12) Intra-abdominal adhesions: Status: Acute Time Spent With Patient Time: Total time managing care of this patient today ____ minutes. Quality Stroke Does the patient have a stroke diagnosis?: No VTE Prior VTE?: No VTE Risk Level:: Surgical - moderate VTE Device Contraindication: N/A - Device Ordered VTE Drug Contraindication: Treatment Not Indicated
--- NOTE | 2022-10-03 14:46 | PM.DS ---
DS: Providers Provider Date of Service: 10/04/22 Primary care physician: Lacey Jameson MD DS: Diagnosis Discharge Diagnosis (1) Morbid obesity: Status: Acute (2) History of sleeve gastrectomy: Status: Inactive (3) GERD (gastroesophageal reflux disease): Status: Acute (4) Bipolar 1 disorder: Status: Acute (5) Hypertension: Status: Acute (6) Hypothyroid: Status: Acute (7) Depression: Status: Acute (8) Anxiety: Status: Acute (9) Steatosis, liver: Status: Acute (10) Cholelithiasis: Status: Acute DS: Summary Hospital Course Hospital Course: ADMITTING DIAGNOSIS: morbid obesity, bipolar, htn, hypothyroid, anxiety, gerd, depression, anxiety ? DISCHARGE DIAGNOSIS: same, s/p laparoscopic sleeve gastrectomy ? PAST SURGICAL HISTORY: LSG ? PROCEDURE: upper endoscopy, laparoscopic sleeve gastrectomy ? DISCHARGE SUMMARY: ? History of Present Illness: ? The patient is a?52 year-old woman with a BMI of?52.5 kg/m2 and associated co-morbidities as described above. The patient had extensive work-up,lost?44.6 lbs preoperatively and was electively scheduled for laparoscopic, possible open sleeve gastrectomy and gastropexy. Risks and complications of the surgery were discussed with the patient in advance, particularly the possibility of , pulmonary embolism, anastomotic leak, bleeding, bowel injury, GERD, cardiac, renal or pulmonary complications. The patient understood all the risks and was in agreement with the surgical plan. ? Hospital Course: ? The patient underwent an uneventful laparoscopic sleeve gastrectomy with gastropexy on the day of admission. Postoperatively, the patient was transferred to the surgical floor. The patient received IV Acetaminophen and IV dilaudid for pain control. Patient was started on bariatric phase 1 diet POD #0. On postoperative day one, the patient was feeling well without nausea, vomiting, fevers, or tachycardia. The patient had some mild incisional pain and the abdomen was soft. ? On the morning of postoperative day one, the patient was continued on 1 ounce of water or ice every half hour. During the day, the patient did fairly well, having some incisional pain, but able to ambulate adequately and to tolerate liquids well. ? Since the patient is doing well, we decided that the patient was ready to be discharged. The patient was given instructions to follow-up with me next week and to call my office for any fever over 101, persistent abdominal pain, nausea, vomiting, GERD, symptoms of DVT such as calf tenderness, or leg swelling, or pulmonary embolism such as chest pain or shortness of breath. The patient was also instructed to drink 40-60 ounces of liquids per day using the 1-ounce cups. The patient had been given prescriptions for Tylenol for pain, Zofran prn for nausea, and pantoprazole and carafate previously. The patient was encouraged to ambulate and use the incentive spirometer. The patient was allowed to shower, but no baths, and encouraged to stay active at home. All of these instructions were given to the patient personally. All questions were answered and the patient understood all instructions, the instructions were also given to the patient in print. Time Spent with Patient Time attestation: Total time managing care of this patient today ____ minutes. Discharge coordination time: Less than 30 minutes Quality: Safe Use of Opioids Does Pt have an Active Cancer Diagnosis on the Problem List?: No Quality: Stroke Does the patient have a stroke diagnosis?: No Physical Exam Vital Signs: Vital Signs: Last Vital Signs Temp 98 F 10/03/22 14:37 Pulse 78 10/03/22 14:42 Resp 16 10/03/22 14:42 BP 129/60 10/03/22 14:42 Pulse Ox 94 10/03/22 14:42 O2 Del Method 10/03/22 14:42 O2 Flow Rate 2 10/03/22 14:42 BMI result Body Mass Index 44.9 DS: Data Data Completed and Pending Pending studies at discharge: Pending at discharge 10/03/22 14:04 Surgical [PTH] Routine Labs on day of discharge: Laboratory Results - last 24 hr 09/26/22 06:48 Blood Type O Positive Antibody Screen NEGATIVE Discharge Plan Discharge Anticipated Discharge Date/Time: 10/04/22 08:38 Patient Disposition: Home, Self-Care Discharge Diagnosis: s/p laparoscopic sleeve gastrectomy Referrals: Lacey Ku MD [Primary Care Provider] - 1 Week Discharge Medications: Continued quetiapine 100 mg tablet 1 tab PO BEDTIME PRN (Reason: Insomnia) escitalopram oxalate 20 mg tablet 1 tab PO DAILY levothyroxine 50 mcg tablet 1 tab PO DAILY pantoprazole 40 mg tablet,delayed release (DR/EC) 40 mg PO DAILY Qty: 30 2RF sucralfate 100 mg/mL suspension 10 ml PO BID Qty: 400 2RF ondansetron HCl 4 mg tablet 4 mg PO Q12H Qty: 20 0RF Held lisinopril 10 mg tablet 1 tab PO DAILY Hold Instructions: Resume on 10/05/22. Check your blood pressure every evening and send it to Dr. Moseley. Do not take the medication before you hear from Dr. Moseley. Do not take the medication if your blood pressure is below 120/70 mmHg. Discontinued cholecalciferol (vitamin D3) 50 mcg (2,000 unit) capsule 50 mcg PO DAILY Qty: 30 5RF cyanocobalamin (vitamin B-12) 250 mcg tablet 250 mcg PO DAILY Qty: 30 3RF vitamin A palmitate 10,000 unit tablet 20,000 unit PO DAILY 14 Days Qty: 28 0RF Discharge Orders: Discharge Order (Routine); Ordered 10/04/22 Ordered By: Dominick Moseley Activity on Discharge: No heavy lifting Stand Alone Forms: Patient Portal Discharge page Care Plan Goals: weight loss Health Concerns: morbid obesity Plan of Treatment: No tub baths, sex or returning to work until discussed at first post op appointment. No exercise, alcohol, tobacco or illegal drug use. Continue to use incentive spirometer hourly while awake. Walk in home for 5- 10 minutes every 2 hours during the first week. Follow all instructions in the bariatric handbook and call with any questions.Discharge Instructions 1. Please call your doctor or come back to the emergency room should any new symptoms arise. 2. You will receive a courtesy call from [facility] 24-48 hours after discharge. 3. Activity: abstain from alcohol, practice limited stair climbing, no bending, no driving, no exercise, no illicit substances, no lifting, no sex, no tub bath, no work. 4. Diet: continue as discussed with Dr. Moseley. 5. Dressing Change/Wound Care: Your incision is covered by clear bandages and guaze underneath. If the area is tender, you may apply an ice pack for short intervals (no more than 20 minutes on, followed by at least 20 minutes off). Do not apply heat. Do not use creams, lotions, or topical antibiotics unless instructed to do so by your surgeon. These can cause infection or allergic reaction. 6. Call your doctor if: - Your temperature exceeds 101.5 F - You experience excessive pain or swelling - You have an unexpected reaction to medication - You have excessive bleeding - You experience continued vomiting/nausea - Your incision begins to separate - Your incision shows signs of infection such as increased redness, swelling, excessive pain, heat, or drainage (light blood or clear fluid is normal) 7. General instructions: No lifting greater than 5 lbs for the next 4 weeks[address] driving within 24 hours of taking narcotic pain medications. If you do not move your bowels in the next 2 days, please take milk of magnesia over the counter. Please follow the post op diet and do not advance your diet until you are seen in the office in about 2 weeks. Please walk around your home every hour or two to prevent blood clots from forming in your legs. You do not need to wake from sleeping to walk. Please sleep in a bed or couch to prevent kinking at the hips and knees. Please take your incentive spirometer (your lung senior application programmer) home with you and use it for the next few days to prevent pneumonias. You may shower, no hot tubs, baths or swimming pools. Please call the office with any questions or concerns such as increasing abdominal pain, fever, chills, shortness of breath, chest pain, leg pain or swelling, or redness or drainage from your incisions. Please stay on stage 3 diet which includes sugar free clear liquids such as ice pops and jello and broth and crystal light. Avoid all carbonation. Please drink 3 protein shakes with at least 25-30 grams of protein daily or 3 of the Celebrate 4:1 shakes which can be purchased in our office. The Celebrate shakes have all of the bariatric vitamins you need if you consume these shakes. If you are drinking other protein shakes, you will need to purchase the Celebrate multivitamins and calcium that we provide in the office (they will provide all the vitamins you need). Please make sure you are consuming at least 40-60 ounces of water in addition to your 3 protein shakes daily. Do not hesitate to contact the office with any questions at . The patient's medical history has been reviewed and they are considered low risk for post op DVT and therefore DVT prophylaxis is not considered necessary. Travel after surgery was reviewed. The patient has not disclosed any travel plans during the first 30 days after surgery and they have been advised that within the first 30 days after surgery any bus, plane, train or car travel over 2 hours in duration is contraindicated due to the possibility of developing blood clots from immobility. Any travel, needs to include periods of ambulation of 10 minutes in duration every 2 hours.? The patient was instructed to discuss any plans for travel during this period with their bariatric surgeon. Assessment: stable s/p laparoscopic sleeve gastrectomy Discharge Date/Time: 10/04/22 09:37
[2022-10-03 15:24] LABS: Hematocrit 42.9 % (37.0-47.0); Hemoglobin 14.4 g/dl (12.0-16.0)
[2022-10-03 15:35] LABS: Anion Gap 17 (12-20); Blood Urea Nitrogen 16 mg/dL (9-16); Calcium 8.9 mg/dL (8.4-10.2); Carbon Dioxide 21 mmol/L (22-29); Chloride 106 mmol/L (96-108); Creatinine Clr Calc Pharmacy 87.1; Estimated Glomerular Filt Rate > 60; Glucose Random 134 mg/dL (60-115); Potassium 4.7 mmol/L (3.3-5.1); Sodium 139 mmol/L (135-145)
[2022-10-03] MEDS: Acetaminophen 1,000 MG/100 ML PIGGYBACK 400 MG IV (16:04)
[2022-10-03] MEDS: Acetaminophen 1,000 MG/100 ML PIGGYBACK 16.7 MG IV ×2 (16:20→21:38)
[2022-10-03] MEDS: ceFAZolin Sodium/Dextrose,Iso 2 GM/50 ML PIGGYBACK IV (17:27)
[2022-10-03] MEDS: Famotidine/PF 20 MG/2 ML VIAL IVPUSH (20:12)
[2022-10-03] MEDS: 0.9 % Sodium Chloride Flush 3 ML SYRINGE IVFLUSH (20:12)
[2022-10-03] MEDS: ondansetron HCL 4 MG/2 ML VIAL IVPUSH (23:17)
[2022-10-04] VITALS: BP 143/83; PULSE 64; RESP 16; TEMP 36; O2SAT 96
[2022-10-04] MEDS: Lactated Ringers 1,000 ML 100 ML IVCONT (02:12)
[2022-10-04] MEDS: Acetaminophen 1,000 MG/100 ML PIGGYBACK 16.7 MG IV (03:32)
[2022-10-04 04:00] VITALS: BP 134/65; PULSE 66; RESP 16; TEMP 36.1; O2SAT 96
[2022-10-04] MEDS: Levothyroxine Sodium 25 MCG TABLET PO (05:27)
[2022-10-04 06:28] LABS: MANUAL DIFF FLAG NO
[2022-10-04 06:34] LABS: Basophils Percent Auto 0.2 % (0-2); Hematocrit 42.7 % (37.0-47.0); Hemoglobin 14.2 g/dl (12.0-16.0); Imm Gran Abs Auto 0.05 X10*3/uL (0.00-0.03); Imm Gran Pct Auto 0.4 % (0.0-0.4); Lymphocytes Absolute Auto 1.1 X10*3/uL (1.2-4.9); Lymphocytes Percent Auto 8.1 % (20-40); Mean Corpuscular HGB Conc 33.3 g/dl (31.0-35.0); Mean Corpuscular Hemoglobin 28.5 pg (27.0-33.0); Mean Corpuscular Volume 85.7 fL (80.0-98.0); Monocytes Absolute Auto 0.4 X10*3/uL (0.1-1.2); Monocytes Percent Auto 2.7 % (2-11); Neutrophils Absolute Auto 11.5 x10*3/uL (2.0-8.3); Neutrophils Percent Auto 88.6 % (45-73); Platelet Count 334 X10*3/uL (160-400); Red Blood Count 4.98 X10*6/uL (4.20-5.50); Red Cell Distribution Width 13.7 % (11.0-16.0)
[2022-10-04 06:58] LABS: Anion Gap 18 (12-20); Blood Urea Nitrogen 12 mg/dL (9-16); Calcium 9.1 mg/dL (8.4-10.2); Carbon Dioxide 20 mmol/L (22-29); Chloride 103 mmol/L (96-108); Creatinine Clr Calc Pharmacy 103.6; Estimated Glomerular Filt Rate > 60; Glucose Random 112 mg/dL (60-115); Potassium 4.6 mmol/L (3.3-5.1); Sodium 136 mmol/L (135-145)
[2022-10-04 07:24] VITALS: BP 127/63; PULSE 60; RESP 19; TEMP 36.4; O2SAT 96
[2022-10-04] MEDS: Escitalopram Oxalate 20 MG TABLET PO (07:43)
[2022-10-04] MEDS: lisinopriL 10 MG TABLET PO (07:44)
[2022-10-04] MEDS: ondansetron HCL 4 MG/2 ML VIAL IVPUSH (07:44)
[2022-10-04] MEDS: Famotidine/PF 20 MG/2 ML VIAL IVPUSH (07:45)
[2022-10-04 08:05] LABS: Glucose, Whole Blood 116 mg/dL (60-115)
--- NOTE | 2022-10-04 09:11 | MHC.CM.PN ---
IMM DELIVERED PT LIVES IN AN APT, INDEPENDENT AT BASELINE, EMPLOYED F/T. + COVID VAX X3, NO HCP(DECLINES) PCP DR. TRAN AT [facility]. DP: PT HAS BEEN MEDICALLY CLEARED FOR DC HOME, NO SERVICES. RN AWARE. FAMILY WILL TRANSPORT HOME.
--- NOTE | 2022-10-04 13:29 | HO.POSTANES ---
Post Anesthesia Evaluation Post Anesthesia Evaluation Vital Signs: Vital Signs Temp Pulse Resp BP Pulse Ox O2 Del Method 10/04/22 07:24 97.6 F 60 19 127/63 96 Room Air 10/04/22 04:00 97.0 F 66 16 134/65 96 Room Air Anesthesia: General Endotracheal-GETA Mental Status: Awake Pain Control: Satisfactory Nausea/Vomiting: None Hydration: Adequate Anesthesia-Related Issues: No Anes. Related Issues
== END 2022-10-04 09:37 | disposition home or self-care (01) | DRG 621 ==
LOC: HO.SSSA 15:09 → HO.S3 15:19
PROVIDERS: Physician Assistant Surgical; Admitting Provider Surgery; PCP Internal Medicine; Visit Provider Surgery
PROC: 0DB64Z3 Excision of Stomach, Percutaneous Endoscopic Approach, Vertical (ICD-10-PCS; principal; 2022-10-03 10:10)
DX: E66.01 Morbid (severe) obesity due to excess calories (principal); K21.9 Gastro-esophageal reflux disease without esophagitis; E03.9 Hypothyroidism, unspecified; F32.A Depression, unspecified; F41.9 Anxiety disorder, unspecified; K76.0 Fatty (change of) liver, not elsewhere classified; K80.20 Calculus of gallbladder without cholecystitis without obstruction; Z68.41 Body mass index [BMI] 40.0-44.9, adult; Z20.822 Contact with and (suspected) exposure to COVID-19; Z87.891 Personal history of nicotine dependence; Z79.890 Hormone replacement therapy; Z79.899 Other long term (current) drug therapy
CPT/HCPCS: 36415; 80048; 82947; 85014; 85018; 85025; 86850; 86900; 86901; 87635; 88307; 88342; A4649; C9088; J0131; J0690; J1100; J1170; J2250; J2405; J2795; J3010

== ENCOUNTER → 2022-10-08 10:29 | Outpatient (BNVA) | payer MEDICARE, MEDICAID, SELFPAY | PROVIDERS: PCP Internal Medicine; Visit Provider Physician Assistant Surgical | DX: E66.01 Morbid (severe) obesity due to excess calories (principal); I10 Essential (primary) hypertension; F17.210 Nicotine dependence, cigarettes, uncomplicated; Z68.41 Body mass index [BMI] 40.0-44.9, adult | CPT/HCPCS: 99212 ==

== ENCOUNTER → 2022-10-25 08:24 | Outpatient (BNVA) | payer MEDICARE, MEDICAID, SELFPAY | PROVIDERS: PCP Internal Medicine; Visit Provider Physician Assistant | DX: Z98.84 Bariatric surgery status (principal) | CPT/HCPCS: 99212 ==

== ENCOUNTER → 2022-11-06 08:25 | Outpatient (BNVA) | payer MEDICARE, MEDICAID, SELFPAY | PROVIDERS: PCP Internal Medicine; Visit Provider Physician Assistant | DX: Z98.84 Bariatric surgery status (principal) | CPT/HCPCS: 99212 ==

== ENCOUNTER → 2023-01-10 13:15 | Outpatient (BNVA) | payer MEDICARE, MEDICAID, SELFPAY | PROVIDERS: PCP Internal Medicine; Visit Provider Physician Assistant | DX: Z98.84 Bariatric surgery status (principal) ==

== ENCOUNTER → 2023-01-22 08:12 | Outpatient (BNVA) | payer MEDICARE, MEDICAID, SELFPAY | PROVIDERS: PCP Internal Medicine; Visit Provider Dietitian, Registered | DX: E66.9 Obesity, unspecified (principal); K21.9 Gastro-esophageal reflux disease without esophagitis; Z68.37 Body mass index [BMI] 37.0-37.9, adult; Z90.3 Acquired absence of stomach [part of]; Z71.3 Dietary counseling and surveillance | CPT/HCPCS: 97803 ==

== ENCOUNTER 2023-02-21 09:07 | Outpatient (AMB) | payer MEDICARE, MEDICAID, SELFPAY ==
--- NOTE | 2023-02-21 08:44 | MHC.OFFVISWM ---
Intake VS Expanded 02/21/23 08:48 Height 5 ft 2 in Weight 196 lb BMI 35.8 Intake Visit Reasons: VIDEO PO LSG 10/03/22 Allergies No Known Allergies Allergy (Verified 11/06/22 08:28) Medication List - Last Reconciled 02/21/23 by Prachi Brooks PA-C calcium citrate-vitamin D3 315 mg-5 mcg (200 unit) (Calcium Citrate + D) 1 tab PO BID levothyroxine 1 tab PO DAILY hetlvjidkfxh-bnc-glgc-FA-vit K 45 mg iron- 800 mcg-120 mcg (Bariatric Multivitamins) caps PO quetiapine 1 tab PO BEDTIME PRN HPI HPI Comments History of Present Illness Details Pt is 4.5 months s/p revision of previous LSG. 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 No n/v/abd pain or reflux. Exercise - does not have an exercise routine. Walks 3 times per week or an exercise video (different ones). Meal plan: 8-9am - Premier shake 1 pm -yogurt, OR string cheese and turkey pepperoni 5pm - 3- 4 oz protien and 8 oz vegetable - eats and then gets up and comes back to finish meal - feels full at times may have mini cucumbers or a yougrt. [facility] Medical History (Updated 02/21/23 @ 09:07 by Prachi Brooks PA-C) Anxiety Bipolar 1 disorder Depression GERD (gastroesophageal reflux disease) HTN (hypertension) with goal to be determined Hypertension Hypothyroid Morbid obesity Pre-op evaluation Surgical History History of esophagogastroduodenoscopy (EGD) History of sleeve gastrectomy Hx of colonoscopy Family History Mother Heart attack Father Heart attack Brother Heart attack Diabetes Brother Hypertension Brother Hypertension Sister Hypertension Sister No problems noted. Daughter No problems noted. Daughter No problems noted. Son No problems noted. Social History Household Members: None Housing: Apartment Are you a primary care aid to a significant other at home: No Do you presently have visiting nurse or other home services: No Alcohol intake: former Year quit: 2019 Patient Tobacco Use Status: Former Tobacco user Quit Date: 1 month ago Tobacco use type: Cigarette Cigarette Packs Per Day: 1 Cigarettes Per Day: 20.0 Years Smoked: 35+ Second Hand Smoke Exposure: No service: No Current occupational status: employed Assessment & Plan Assessment & Plan (1) Obesity: Code(s): E66.9 - Obesity, unspecified Plan: Now 4.5 months s/p revision LSGg with 91 lbs 31.7% TBWL. WE discussed the importance of 4d/ week regularly scheduled exercise routine, she is aware. We also discussed making sure she gets the last yogurt so that she has adequate protien intake of aobut 90 grams per day. Limit dinner meal to 30 minutes and 4 oz proteinand no more than 4 oz veetable at that meal. Next appt at 6 months post op with me, labs will be ordered. Patient is still obese and is not considered stable at this time. I spent 27 minutes in total speaking with the patient via video conference counseling , reviewing records and charting in patients chart. . (2) S/P laparoscopic sleeve gastrectomy: Code(s): Z98.84 - Bariatric surgery status Telehealth Telehealth Location of provider rendering services: practice address Location of patient: address on file Patient Identification confirmed using: Name, : Yes Telehealth method: video Patient verbally consented to treatment: Yes Patient verbally consented to billing insurance company: Yes Patient informed of any privacy concerns related to visit: Yes Coding Level of Care Code Tele Est Pt Level 4 (87878) Diagnoses Obesity E66.9 S/P laparoscopic sleeve gastrectomy Z98.84
[2023-02-21 08:48] VITALS: BMI 35.8
== END 2023-02-21 09:10 | disposition home or self-care (01) ==
LOC: HO.HBS 09:07
PROVIDERS: PCP Internal Medicine; Visit Provider Physician Assistant
DX: E66.9 Obesity, unspecified (principal); Z68.35 Body mass index [BMI] 35.0-35.9, adult; Z90.3 Acquired absence of stomach [part of]; Z98.84 Bariatric surgery status
CPT/HCPCS: 99213

== ENCOUNTER → 2023-02-21 09:07 | Outpatient (BNVA) | payer MEDICARE, MEDICAID, SELFPAY | PROVIDERS: PCP Internal Medicine; Visit Provider Physician Assistant ==

== ENCOUNTER 2023-04-09 16:29 | Outpatient (AMB) | payer MEDICARE, MEDICAID, SELFPAY ==
--- NOTE | 2023-04-09 14:38 | MHC.OFFVISWM ---
Intake VS Expanded 04/09/23 16:52 Height 5 ft 2 in Weight 193 lb BMI 35.3 Intake Visit Reasons: VIDEO PO LSG 10/03/22 Allergies No Known Allergies Allergy (Verified 11/06/22 08:28) HPI HPI Comments History of Present Illness Details Pt is now 6 months post op revision from previous LSG. 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 She stopped her levothyroxine - and also bariatric MVi and ad/vit D - she does not know why she is not taking. Meal plan: 8am -Premeir shake 1 pm - chicken/fish and cottage cheese OR raw vegetable and hummus - does not measure food 6pm - same as lunch yogurt after dinner 3 d/ week Pulled her left hamstring(?) yesterday. Post op complications: none HENRIETTA: never DM: never HTN: resolved Hyperlipidemia: still on meds GERD: 0- Satisfaction with present condition - satisfied [facility] Medical History (Updated 02/21/23 @ 09:07 by Prachi Brooks PA-C) Anxiety Depression Hypertension GERD (gastroesophageal reflux disease) Pre-op evaluation HTN (hypertension) with goal to be determined Hypothyroid Bipolar 1 disorder Morbid obesity Surgical History History of esophagogastroduodenoscopy (EGD) Hx of colonoscopy History of sleeve gastrectomy Family History Mother Heart attack Father Heart attack Brother Heart attack Diabetes Brother Hypertension Brother Hypertension Sister Hypertension Sister No problems noted. Daughter No problems noted. Daughter No problems noted. Son No problems noted. Social History Household Members: None Housing: Apartment Are you a primary family day carer to a significant other at home: No Do you presently have visiting nurse or other home services: No Alcohol intake: former Year quit: 2019 Patient Tobacco Use Status: Former Tobacco user Quit Date: 1 month ago Tobacco use type: Cigarette Cigarette Packs Per Day: 1 Cigarettes Per Day: 20.0 Years Smoked: 35+ Second Hand Smoke Exposure: No service: No Current occupational status: employed Physical Exam Const General: healthy appearing, comfortable and no acute distress GI Inspection: Yes incision (all healed well), Yes Abdominal panniculus present and No visible herniation Assessment & Plan Assessment & Plan (1) Obesity: Code(s): E66.9 - Obesity, unspecified Plan: 6 months post op without complications. Having some mental health struggles, not taking her levothyroxine or vitamins. Making good food choices but eating large quantities, no exercise routine. Will get labs done tomorrow. Restart bariatric vitamins with dinner, ca and vit d bid. Meal plan shake 4 forks each of protien and veg for lunch 4 forks each of protien and veg for dinner yogurt in the evening Exercse - needs to restart - now wiht leg injurty - restart with Sami Owen chair exercises, then advance back to LS videos when she can. Pt was encouraged to text me with weights and questions. Next appt with me in 6 weeks. Patient is still obese and is not considered stable at this time. I spent 30 minutes in total speaking with the patient via video conference counseling , reviewing records and charting in patients chart. . (2) S/P laparoscopic sleeve gastrectomy: Code(s): Z98.84 - Bariatric surgery status Orders: Orders Insulin Today E03.9 - Hypothyroidism, unspecified, E66.9 - Obesity, unspecified, I10 - Essential (primary) hypertension, Z98.84 - Bariatric surgery status Lipid Panel Today E03.9 - Hypothyroidism, unspecified, E66.9 - Obesity, unspecified, I10 - Essential (primary) hypertension, Z98.84 - Bariatric surgery status IRON PROFILE Today E03.9 - Hypothyroidism, unspecified, E66.9 - Obesity, unspecified, I10 - Essential (primary) hypertension, Z98.84 - Bariatric surgery status Vitamin B12 and Folate Today E03.9 - Hypothyroidism, unspecified, E66.9 - Obesity, unspecified, I10 - Essential (primary) hypertension, Z98.84 - Bariatric surgery status Zinc Today E03.9 - Hypothyroidism, unspecified, E66.9 - Obesity, unspecified, I10 - Essential (primary) hypertension, Z98.84 - Bariatric surgery status Comprehensive Met. Panel Today E03.9 - Hypothyroidism, unspecified, E66.9 - Obesity, unspecified, I10 - Essential (primary) hypertension, Z98.84 - Bariatric surgery status Vitamin B1 Today E03.9 - Hypothyroidism, unspecified, E66.9 - Obesity, unspecified, I10 - Essential (primary) hypertension, Z98.84 - Bariatric surgery status Ferritin Today E03.9 - Hypothyroidism, unspecified, E66.9 - Obesity, unspecified, I10 - Essential (primary) hypertension, Z98.84 - Bariatric surgery status TSH reflex Free T4 Today E03.9 - Hypothyroidism, unspecified, E66.9 - Obesity, unspecified, I10 - Essential (primary) hypertension, Z98.84 - Bariatric surgery status Vitamin D 25-OH Total Today E03.9 - Hypothyroidism, unspecified, E66.9 - Obesity, unspecified, I10 - Essential (primary) hypertension, Z98.84 - Bariatric surgery status Complete Blood Count Auto Diff Today E03.9 - Hypothyroidism, unspecified, E66.9 - Obesity, unspecified, I10 - Essential (primary) hypertension, Z98.84 - Bariatric surgery status Vitamin A Today E03.9 - Hypothyroidism, unspecified, E66.9 - Obesity, unspecified, I10 - Essential (primary) hypertension, Z98.84 - Bariatric surgery status C Reactive Protein Today E03.9 - Hypothyroidism, unspecified, E66.9 - Obesity, unspecified, I10 - Essential (primary) hypertension, Z98.84 - Bariatric surgery status PTHI Today E03.9 - Hypothyroidism, unspecified, E66.9 - Obesity, unspecified, I10 - Essential (primary) hypertension, Z98.84 - Bariatric surgery status Hemoglobin A1c Today E03.9 - Hypothyroidism, unspecified, E66.9 - Obesity, unspecified, I10 - Essential (primary) hypertension, Z98.84 - Bariatric surgery status Telehealth Telehealth Location of provider rendering services: practice address Location of patient: address on file Patient Identification confirmed using: Name, : Yes Telehealth method: video Patient verbally consented to treatment: Yes Patient verbally consented to billing insurance company: Yes Patient informed of any privacy concerns related to visit: Yes Coding Level of Care Code Tele Est Pt Level 4 (88054) Diagnoses Obesity E66.9 S/P laparoscopic sleeve gastrectomy Z.84
[2023-04-09 16:52] VITALS: BMI 35.3
== END 2023-04-09 17:12 | disposition home or self-care (01) ==
LOC: HO.HBS 16:29
PROVIDERS: PCP Internal Medicine; Visit Provider Physician Assistant
DX: E66.9 Obesity, unspecified (principal); Z68.35 Body mass index [BMI] 35.0-35.9, adult; Z90.3 Acquired absence of stomach [part of]; Z98.84 Bariatric surgery status
CPT/HCPCS: 99214

== ENCOUNTER → 2023-04-09 16:29 | Outpatient (BNVA) | payer MEDICARE, MEDICAID, SELFPAY | PROVIDERS: PCP Internal Medicine; Visit Provider Physician Assistant ==

== ENCOUNTER 2023-06-23 13:00 | Outpatient (AMB) | payer MEDICARE, MEDICAID, SELFPAY ==
--- NOTE | 2023-06-23 13:03 | MHC.OFFVISWM ---
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 6 months labs were ordered but not drawn. Has COVID now. BM's every 5-6 days. Stopped hr vitamins months ago. No n/v, abd pain or reflux. Meal plan: no set schedule 8 cups of coffee per day with creamer 8:30 - Premier shake 12 pm - pre made from grocery store salad or cottage cheese with turkey 6pm - 3- 4 oz chicken or fish and 4 oz's vegetables may have yogurt or cucmuber, ocassional popcorn. Exercise- no regular exercise [facility] Medical History (Updated 02/21/23 @ 09:07 by Prachi Brooks PA-C) Anxiety Depression Hypertension GERD (gastroesophageal reflux disease) Pre-op evaluation HTN (hypertension) with goal to be determined Hypothyroid Bipolar 1 disorder Morbid obesity Surgical History History of esophagogastroduodenoscopy (EGD) Hx of colonoscopy History of sleeve gastrectomy Family History Mother Heart attack Father Heart attack Brother Heart attack Diabetes Brother Hypertension Brother Hypertension Sister Hypertension Sister No problems noted. Daughter No problems noted. Daughter No problems noted. Son No problems noted. Social History Household Members: None Housing: Apartment Are you a primary morning caregiver to a significant other at home: No Do you presently have visiting nurse or other home services: No Alcohol intake: former Year quit: 2019 Patient Tobacco Use Status: Former Tobacco user Quit Date: 1 month ago Tobacco use type: Cigarette Cigarette Packs Per Day: 1 Cigarettes Per Day: 20.0 Years Smoked: 35+ Second Hand Smoke Exposure: No service: No Current occupational status: employed Assessment & Plan Assessment & Plan (1) S/P laparoscopic sleeve gastrectomy: Code(s): Z98.84 - Bariatric surgery status Plan: Needs 80 grams per day. Complains of hair loss, lack of energyand constipation - these coudl all be sings of hypothyroidism, this was explained to her and she will get her labs drawn. 8:30 am -Shake 12 pm- shake or 3 -4 oz protein 1/4 c vegetables or fruit 6pm - same 4 oz/4 oz Regular exercise - 45 minutes 4d/week - 2,00 calories - considering restarting gym Needs appt with Sameera now, will get labs done now. Me in 8 weeks. I spent 25 minutes in total speaking with the patient via video conference counseling , reviewing records and charting in patients chart. . (2) Obesity: Code(s): E66.9 - Obesity, unspecified (3) Constipation: Code(s): K59.00 - Constipation, unspecified Plan see above Telehealth Telehealth Location of provider rendering services: practice address Location of patient: address on file Patient Identification confirmed using: Name, : Yes Telehealth method: video Patient verbally consented to treatment: Yes Patient verbally consented to billing insurance company: Yes Patient informed of any privacy concerns related to visit: Yes Coding Level of Care Code Tele Est Pt Level 4 (11984) Diagnoses S/P laparoscopic sleeve gastrectomy Z98.84 Obesity E66.9 Constipation K59.00
[2023-06-23 13:13] VITALS: BMI 33.5
== END 2023-06-23 13:32 | disposition home or self-care (01) ==
LOC: HO.HBS 13:21
PROVIDERS: PCP Internal Medicine; Visit Provider Physician Assistant
DX: E66.9 Obesity, unspecified (principal); Z68.33 Body mass index [BMI] 33.0-33.9, adult; Z90.3 Acquired absence of stomach [part of]; Z98.84 Bariatric surgery status
CPT/HCPCS: 99213

== ENCOUNTER → 2023-06-23 13:00 | Outpatient (BNVA) | payer MEDICARE, MEDICAID, SELFPAY | PROVIDERS: PCP Internal Medicine; Visit Provider Physician Assistant ==